=== PATIENT | female | born 1990 | race Caucasian/White ===

== ENCOUNTER 2016-06-22 02:32 | Emergency (ER) | payer MEDICAID ==
[~2016-06-22] VITALS: Ht 160 cm; Wt 63.5 kg
[~2016-06-22 02:32] MED LIST: ACET500C5 PO; CEPH-443 PO; CIPR500T4 PO; DICY10CA60 PO; HYDR-3498 PO; HYDR-906 PO; MAG-19 PO; METR500T PO; NITR-58 PO; OMEP20CA16 PO; ONDA4TAB35 PO; ONDA4TAB8 PO; OXYC-281 PO
[2016-06-22 02:35] VITALS: Ht 160 cm; Wt 63.5 kg
[2016-06-22] MEDS ORDERED: morphine 4 MG/ML VIAL IV STA (02:53)
[2016-06-22] MEDS ORDERED: ONDANSETRON 4 MG INJ IV STA ×2 (02:53→04:27)
[2016-06-22] MEDS ORDERED: SOD CHLORIDE 0.9% 1,000 ML IV STA (02:53)
[2016-06-22 03:52] LABS: ADD UMIC NO; URINE BILIRUBIN (Dip) NEGATIVE (NEGATIVE); URINE BLOOD (Dip) NEGATIVE (NEGATIVE); URINE COLOR LT. YELLOW (YELLOW); URINE GLUCOSE (Dip) NEGATIVE (NEGATIVE); URINE KETONES (Dip) NEGATIVE (NEGATIVE); URINE LEUKOCYTE ESTERASE (Dip) NEGATIVE (NEGATIVE); URINE NITRITE (Dip) NEGATIVE (NEGATIVE); URINE TOTAL PROTEIN (Dip) NEGATIVE (NEGATIVE); URINE UROBILINOGEN (Dip) 0.2 E.U./dL (0.1-1.0)
[2016-06-22 03:56] LABS: BASOPHILS % 0.3 % (0.0-2.0); EOSINOPHILS # 0.2 10^3/ul (0.0-0.5); EOSINOPHILS % 3.6 % (0.0-7.0); HEMATOCRIT 40.5 % (37.0-47.0); HEMOGLOBIN 13.4 g/dl (12.0-16.0); LYMPHOCYTES # 2.3 10^3/ul (0.8-2.9); LYMPHOCYTES % 36.2 % (15.0-51.0); MEAN CORPUSCULAR HEMOGLOBIN 27.2 pg (29.0-33.0); MEAN CORPUSCULAR HGB CONC 33.2 g/dl (32.0-37.0); MEAN CORPUSCULAR VOLUME 82.1 fl (82.0-101.0); MEAN PLATELET VOLUME 8.6 fl (7.4-10.4); MONOCYTE # 0.5 10^3/ul (0.3-0.9); MONOCYTES % 7.8 % (0.0-11.0); NEUTROPHIL # 3.3 10^3/ul (1.6-7.5); NEUTROPHILS % 52.1 % (39.0-77.0); PLATELET COUNT 239 10^3/UL (140-440); RED BLOOD COUNT 4.93 10^6/ul (4.20-5.40); RED CELL DISTRIBUTION WIDTH 18.9 % (11.5-14.5); UNCORRECTED WBC 6.3 10^3/ul (4.8-10.8); WHITE BLOOD COUNT 6.3 10^3/ul (4.8-10.8)
[2016-06-22 03:59] LABS: CONDITION 1; LH ANALYZER COMMENTS 1
[2016-06-22 04:00] LABS: POTASSIUM 3.8 mmol/L (3.5-5.1)
[2016-06-22 04:02] LABS: ALBUMIN/GLOBULIN RATIO 1.11; BILIRUBIN,INDIRECT 0.2 mg/dl (0-1.1); BILIRUBIN,TOTAL 0.2 mg/dl (0.2-1.3); CREATININE 1.12 mg/dl (0.44-1.00); TOTAL PROTEIN 7.6 g/dl (6.1-8.1)
[2016-06-22 04:03] LABS: CALCIUM 9.1 mg/dl (8.4-10.2)
[2016-06-22] MEDS ORDERED: HYDROmorphONE 1 MG/ML SYG IV STA (04:13)
--- NOTE | 2016-06-22 05:09 | ERD ---
ER Documentation Chief Complaint Date/Time DATE: 06/22/16 TIME: 05:08 Chief Complaint hx of gallstones, RUQ abdominal pain/N/V/D since 0000 HPI This is a 25-year-old female history of gallstones. Patient has right upper quadrant pain nausea vomiting diarrhea since 12 midnight. Pain is mild to moderate in intensity. 2 episodes of diarrhea with watery. No blood in the vomit. No blood in the stool. No other current complaints. ROS All systems reviewed and are negative except as per history of present illness. Medications Home Meds Active Scripts Ondansetron Hcl* (Zofran*) 4 Mg Tablet, 4 MG PO Q6H for NAUSEA AND/OR VOMITING, #30 TAB Prov:MARIETTA WARD 04/30/16 Hydrocodone/Acetaminophen ([place] 5-325 Tablet) 1 Each Tablet, 1 TAB PO Q6H Y for PAIN, #20 TAB Prov:MARIETTA WARD 04/30/16 Metronidazole* (Flagyl*) 500 Mg Tablet, 500 MG PO TID for 7 Days, TAB Prov:MARIETTA WARD 04/30/16 Ciprofloxacin Hcl* (Ciprofloxacin Hcl*) 500 Mg Tablet, 500 MG PO BID for 7 Days , TAB Prov:MARIETTA WARD 04/30/16 Cephalexin* (Keflex*) 500 Mg Capsule, 500 MG PO QID for 5 Days, CAP Prov:DIALLO EGAN NP 08/14/15 Omeprazole* (Omeprazole*) 20 Mg Capsule.dr, 20 MG PO DAILY, #30 CAP Prov:MAGO LIGHT NP 07/03/15 Ondansetron Hcl* (Zofran* ODT) 4 mg -ODT Tab.disper, 4 MG PO Q8 Y for NAUSEA AND OR VOMITING, #30 TAB Prov:MAGO LIGHT NP 07/03/15 Oxycodone Hcl-Acetaminophen* (Percocet*) 5-325 Mg Tablet, 1 TAB PO Q4H Y for jabari, #30 TAB Prov:MAGO LIGHT RN [employer]IAL SERVICES 07/03/15 Magaldrate/Simethicone* (Mylanta*) 355 Ml Susp, 30 ML PO QID Y for GASTROINTESTINAL UPSET, #1 BOTTLE Prov:MAGO LIGHT RN [employer]IAL SERVICES 07/03/15 Dicyclomine Hcl* (Bentyl*) 10 Mg Capsule, 10 MG PO QID for abdominal cramps, # 30 CAP Prov:MAGO LIGHT RN [employer]IAL SERVICES 07/03/15 Hydrocodone Bit-Acetaminophen* ([place]*) 5-325 Mg Tab, 1 TAB PO Q6 Y for PAIN, # 15 TAB Prov:CARLOS BAILEY RN SOCIAL SERVICES 06/30/15 Acetaminophen* (Tylophen*) 500 Mg Capsule, 1 CAP PO Q6H Y for PAIN AND OR ELEVATED TEMP, #20 CAP Prov:CARLOS BAILEY RN SOCIAL SERVICES 06/30/15 Nitrofurantoin Monohyd Macrocr* (Macrobid*) 100 Mg Capsr, 100 MG PO BID for 7 Days, CAP Prov:CARLOS BAILEY RN SOCIAL SERVICES 06/30/15 Allergies Allergies: Coded Allergies: No Known Allergy (Unverified , 07/03/15) PMhx/Soc History of Surgery: Yes (hernia repair and chest surgery in childhood.) Anesthesia Reaction: No Hx Neurological Disorder: No Hx Respiratory Disorders: No Hx Cardiac Disorders: No Hx Psychiatric Problems: No Hx Miscellaneous Medical Probl: Yes (gallstones) Hx Alcohol Use: Yes (social) Hx Substance Use: No Hx Tobacco Use: No Smoking Status: Unknown if ever smoked Physical Exam Vitals Vital Signs Date Time Temp Pulse Resp B/P Pulse Ox O2 Delivery O2 Flow Rate FiO2 06/22/16 02:35 97.5 66 20 116/81 99 Physical Exam Const: [] Head: Atraumatic Eyes: Normal Conjunctiva ENT: Normal External Ears, Nose and Mouth. Neck: Full range of motion..~ No meningismus. Resp: Clear to auscultation bilaterally Cardio: Regular rate and rhythm, no murmurs Abd: Soft, non tender, non distended. Normal bowel sounds Skin: No petechiae or rashes Back: No midline or flank tenderness Ext: No cyanosis, or edema Neur: Awake and alert Psych: Normal Mood and Affect Result Diagram: 06/22/16 0305 06/22/16 0305 Results 24 hrs Laboratory Tests Test 06/22/16 03:05 06/22/16 03:08 Alanine Aminotransferase (ALT/SGPT) 27IU/L Albumin 4.0g/dl Albumin/Globulin Ratio 1.11 Alkaline Phosphatase 75IU/L Anion Gap 15 Aspartate Amino Transf (AST/SGOT) 20IU/L Basophils # 0.010^3/ul Basophils % 0.3% Blood Morphology Comment Blood Urea Nitrogen 19mg/dl Calcium Level 9.1mg/dl Carbon Dioxide Level 31mmol/L Chloride Level 99mmol/L Creatinine 1.12mg/dl Direct Bilirubin 0.00mg/dl Eosinophils # 0.210^3/ul Eosinophils % 3.6% Globulin 3.60g/dl Glucose Level 91mg/dl Hematocrit 40.5% Hemoglobin 13.4g/dl Indirect Bilirubin 0.2mg/dl Lipase 75U/L Lymphocytes # 2.310^3/ul Lymphocytes % 36.2% Mean Corpuscular Hemoglobin 27.2pg Mean Corpuscular Hemoglobin Concent 33.2g/dl Mean Corpuscular Volume 82.1fl Mean Platelet Volume 8.6fl Monocytes # 0.510^3/ul Monocytes % 7.8% Neutrophils # 3.310^3/ul Neutrophils % 52.1% Nucleated Red Blood Cells # 0.010^3/ul Nucleated Red Blood Cells % 0.0/100WBC Platelet Count 93095^3/UL Potassium Level 3.8mmol/L Red Blood Count 4.9310^6/ul Red Cell Distribution Width 18.9% Sodium Level 141mmol/L Total Bilirubin 0.2mg/dl Total Protein 7.6g/dl White Blood Count 6.310^3/ul Urine Bilirubin NEGATIVE Urine Clarity CLEAR Urine Color LT. YELLOW Urine Glucose NEGATIVE% Urine Hemoglobin NEGATIVE Urine Ketones NEGATIVE Urine Leukocyte Esterase NEGATIVE Urine Nitrite NEGATIVE Urine Specific [place] 1.010 Urine Total Protein NEGATIVE Urine Urobilinogen 0.2 E.U./dL Urine pH 6.5 Current Medications Medications (Trade) Dose Ordered Sig/Chen Route PRN Reason Start Time Stop Time Status Last Admin Dose Admin Sodium Chloride (NS) 1,000 ml @ 1,000 mls/hr Q1H STAT IV 06/22/16 02:53 06/22/16 03:52 DC 06/22/16 03:07 Morphine Sulfate (morphine) 4 mg ONCE STAT IV 06/22/16 02:53 06/22/16 02:54 DC 06/22/16 03:07 Ondansetron HCl (Zofran Inj) 4 mg ONCE STAT IV 06/22/16 02:53 06/22/16 02:54 DC 06/22/16 03:06 Hydromorphone HCl (Dilaudid) 1 mg ONCE STAT IV 06/22/16 04:13 06/22/16 04:16 DC 06/22/16 04:30 Ondansetron HCl (Zofran Inj) 4 mg ONCE STAT IV 06/22/16 04:27 06/22/16 04:28 DC 06/22/16 04:31 Procedures/MDM CBC: no e/o of systemic infection or severe anemia CMP: no e/o severe acidosis, alkalosis, renal failure, diabetic ketoacidosis, liver disease Lipase: no e/o pancreatitis PT/INR: normal coagulation Urine: no e/o acute infection or hematuria Medical decision-makin-year-old female with history of gallstones with reactivation biliary colic. At this point is clinically stable. Feeling much better. Will be discharged home. Follow-up in 8 hours for serial abdominal exams Departure Diagnosis: Primary Impression: Biliary colic Condition: Stable TERESA BENAVIDES Jun 22, 2016 05:09
[2016-06-22] MEDS ORDERED: ONDA4TAB14 PO (05:17)
[2016-06-22] MEDS ORDERED: HYDR-902 PO (05:17)
[2016-06-22 05:25] VITALS: BP 113/77; PULSE 71; RESP 18
== END 2016-06-22 05:25 | disposition home or self-care (01) ==
LOC: E/R 02:32
DX: K80.50 Calculus of bile duct without cholangitis or cholecystitis without obstruction (principal); R11.2 Nausea with vomiting, unspecified
CPT/HCPCS: 36415; 80053; 81003; 83690; 85025; 96374; 96375; 96376; J1170; J2270; J2405; J7030; Z7502

== ENCOUNTER 2017-02-05 19:39 | Emergency (ER) | payer MEDICAID ==
[~2017-02-05] VITALS: Ht 160 cm; Wt 63.0 kg
[~2017-02-05 19:39] MED LIST changes: +HYDR-902 PO; +ONDA4TAB14 PO
[2017-02-05 19:50] VITALS: Ht 160 cm; Wt 63.0 kg
[2017-02-05] MEDS ORDERED: morphine 4 MG/ML VIAL IV STA (21:45)
[2017-02-05] MEDS ORDERED: ONDANSETRON 4 MG INJ IV STA ×2 (21:45→23:47)
[2017-02-05] MEDS ORDERED: SOD CHLORIDE 0.9% 1,000 ML IV STA (21:45)
[2017-02-05 22:32] LABS: BASOPHILS % 0.4 % (0.0-2.0); EOSINOPHILS # 0.1 10^3/ul (0.0-0.5); EOSINOPHILS % 2.3 % (0.0-7.0); HEMATOCRIT 43.4 % (37.0-47.0); HEMOGLOBIN 14.6 g/dl (12.0-16.0); LYMPHOCYTES # 2.1 10^3/ul (0.8-2.9); LYMPHOCYTES % 36.9 % (15.0-51.0); MEAN CORPUSCULAR HEMOGLOBIN 30.4 pg (29.0-33.0); MEAN CORPUSCULAR HGB CONC 33.6 g/dl (32.0-37.0); MEAN CORPUSCULAR VOLUME 90.2 fl (82.0-101.0); MEAN PLATELET VOLUME 9.5 fl (7.4-10.4); MONOCYTE # 0.5 10^3/ul (0.3-0.9); MONOCYTES % 8.7 % (0.0-11.0); NEUTROPHILS % 51.3 % (39.0-77.0); PLATELET COUNT 264 10^3/UL (140-415); RED BLOOD COUNT 4.81 10^6/ul (4.20-5.40); RED CELL DISTRIBUTION WIDTH 13.1 % (11.5-14.5); WHITE BLOOD COUNT 5.6 10^3/ul (4.8-10.8)
[2017-02-05 22:38] LABS: ADD UMIC YES; UR ASCORBIC ACID NEGATIVE (NEGATIVE); UR BACTERIA FEW /HPF (NONE SEEN); UR BILIRUBIN (Dip) NEGATIVE (NEGATIVE); UR BLOOD (Dip) 3+ mg/dL (NEGATIVE); UR CLARITY CLEAR (CLEAR); UR COLOR YELLOW (YELLOW); UR GLUCOSE (Dip) NEGATIVE (NEGATIVE); UR KETONES (Dip) NEGATIVE (NEGATIVE); UR LEUKOCYTE ESTERASE (Dip) NEGATIVE Leu/ul (NEGATIVE); UR NITRITE (Dip) NEGATIVE (NEGATIVE); UR RBC 1 /HPF (0-5); UR SPECIFIC GRAVITY (Dip) 1.009 (1.003-1.030); UR SQUAMOUS EPITHELIAL CELL FEW /HPF (FEW); UR TOTAL PROTEIN (Dip) NEGATIVE (NEGATIVE); UR UROBILINOGEN (Dip) NEGATIVE (NEGATIVE)
[2017-02-05 22:49] LABS: ALBUMIN 4.1 g/dl (3.3-4.9); ALBUMIN/GLOBULIN RATIO 1.2; BILIRUBIN,INDIRECT 0.4 mg/dl (0-1.1); BILIRUBIN,TOTAL 0.4 mg/dl (0.2-1.3); CALCIUM 9.6 mg/dl (8.4-10.2); CREATININE 1.26 mg/dl (0.44-1.00); POTASSIUM 3.4 mmol/L (3.5-5.1); TOTAL PROTEIN 7.5 g/dl (6.1-8.1)
--- NOTE | 2017-02-05 23:26 | RADRPT ---
PROCEDURE: Right upper quadrant abdominal ultrasound. CLINICAL INDICATION: Abdominal pain TECHNIQUE: Kern scale and color doppler ultrasound images of the right upper quadrant of the abdom en. COMPARISON: 04/30/2016 abdominal ultrasound, 07/03/2015 CT abdomen pelvis FINDINGS: Pancreas: Not visualized by the rotary envelope machine operator. Liver: Morphology:Normal in size. Contour:Normal, no evidence of nodularity. Echogenicity: Normal. Focal lesions:None. Main portal vein: Patent with hepatopetal flow. Biliary System: Gallbladder wall: Normal thickness. Gallstones: None. Intrahepatic bile ducts: Normal caliber. Common bile duct diameter (mm): 4.1 Kidneys: Right length (cm) : 8.9 Right cortical thickness: Normal. Echogenicity: Normal. Hydronephrosis: Mild right-sided hydronephrosis. Renal calculi: No definite sonographic evidence of renal calculi. Focal lesions: None. Free fluid/ascites: None. Abdominal aorta: Not visualized by the rotary envelope machine operator. Other findings: None. IMPRESSION: Cholelithiasis without evidence of abnormal gallbladder wall thickening to suggest cholecystitis. Normal caliber of the intrahepatic and extrahepatic biliary system. Mild right-sided hydronephrosis without sonographic evidence of renal calculi. RPTAT: AADD .Aldo Gaming MD, MD Date Time Electronically viewed and signed by .Aldo Gaming MD, on 02/05/2017 23:25 .B/
[2017-02-05] MEDS ORDERED: HYDROmorphONE 1 MG/ML SYG IV STA (23:47)
[2017-02-06] MEDS ORDERED: DICYCLOMINE 10 MG CAP PO ONE
[2017-02-06] MEDS ORDERED: HYDROmorphONE 1 MG/ML SYG IV STA (00:42)
[2017-02-06] MEDS ORDERED: METOCLOPRAMIDE 10 MG INJ IV ONE (01:00)
[2017-02-06] MEDS ORDERED: HYDR-906 PO (01:14)
[2017-02-06] MEDS ORDERED: ONDA4TAB14 PO (01:14)
[2017-02-06 01:42] VITALS: BP 121/82; PULSE 66; RESP 20; TEMP 98.6
--- NOTE | 2017-02-06 03:44 | ERD ---
ER Documentation Chief Complaint Date/Time DATE: 02/06/17 TIME: 03:43 Chief Complaint AP HX of gall stones. HPI 26-year-old female patient past medical history of nephrolithiasis presents to the ED complaining of right upper quadrant pain that started earlier today. Reports that she has had 5 episodes of nonbilious nonbloody vomiting. Denies any fever, chills, diarrhea, constipation, chest pain, shortness of breath. Denies any vaginal bleeding, vaginal discharge, dysuria, urgency, frequency, hematuria. ROS All systems reviewed and are negative except as per history of present illness. Medications Home Meds Active Scripts Ondansetron (Ondansetron Odt) 4 Mg Tab.rapdis, 4 MG PO Q6H Y for NAUSEA AND/OR VOMITING, #10 TAB Prov:LORI WANG PA-C 02/06/17 Hydrocodone/Acetaminophen ([place] 5-325 Tablet) 1 Each Tablet, 1 TAB PO Q6H Y for PAIN, #14 TAB Prov:LORI WANG PA-C 02/06/17 Ondansetron (Ondansetron Odt) 4 Mg Tab.rapdis, 4 MG PO Q6H Y for NAUSEA AND/OR VOMITING, #10 TAB Prov:MOGHADAM,TERESA S. 06/22/16 Hydrocodone/Acetaminophen ([place] 10-325 Tablet) 1 Each Tablet, 1 TAB PO Q6H Y for PAIN, #20 TAB Prov:MOGHADAM,TERESA S. 06/22/16 Ondansetron Hcl* (Zofran*) 4 Mg Tablet, 4 MG PO Q6H for NAUSEA AND/OR VOMITING, #30 TAB Prov:EDMARIETTA C 04/30/16 Hydrocodone/Acetaminophen ([place] 5-325 Tablet) 1 Each Tablet, 1 TAB PO Q6H Y for PAIN, #20 TAB Prov:EDMARIETTA C 04/30/16 Metronidazole* (Flagyl*) 500 Mg Tablet, 500 MG PO TID for 7 Days, TAB Prov:ED,MARIETTA C 04/30/16 Ciprofloxacin Hcl* (Ciprofloxacin Hcl*) 500 Mg Tablet, 500 MG PO BID for 7 Days , TAB Prov:ED,MARIETTA C 04/30/16 Cephalexin* (Keflex*) 500 Mg Capsule, 500 MG PO QID for 5 Days, CAP Prov:DIALLO EGAN NP 08/14/15 Omeprazole* (Omeprazole*) 20 Mg Capsule.dr, 20 MG PO DAILY, #30 CAP Prov:MAGO LIGHT [employer]ING [employer] MAINTAINER 07/03/15 Ondansetron Hcl* (Zofran* ODT) 4 mg -ODT Tab.disper, 4 MG PO Q8 Y for NAUSEA AND OR VOMITING, #30 TAB Prov:MAGO LIGHT [employer]ING [employer] MAINTAINER 07/03/15 Oxycodone Hcl-Acetaminophen* (Percocet*) 5-325 Mg Tablet, 1 TAB PO Q4H Y for jabari, #30 TAB Prov:MAGO LIGHT [employer] MAINTAINER 07/03/15 Magaldrate/Simethicone* (Mylanta*) 355 Ml Susp, 30 ML PO QID Y for GASTROINTESTINAL UPSET, #1 BOTTLE Prov:MAGO LIGHT NP 07/03/15 Dicyclomine Hcl* (Bentyl*) 10 Mg Capsule, 10 MG PO QID for abdominal cramps, # 30 CAP Prov:MAGO LIGHT [employer]ING [employer] MAINTAINER 07/03/15 Hydrocodone Bit-Acetaminophen* ([place]*) 5-325 Mg Tab, 1 TAB PO Q6 Y for PAIN, # 15 TAB Prov:CARLOS BAILEY [employer] MAINTAINER 06/30/15 Acetaminophen* (Tylophen*) 500 Mg Capsule, 1 CAP PO Q6H Y for PAIN AND OR ELEVATED TEMP, #20 CAP Prov:CARLOS BAILEY [employer] MAINTAINER 06/30/15 Nitrofurantoin Monohyd Macrocr* (Macrobid*) 100 Mg Capsr, 100 MG PO BID for 7 Days, CAP Prov:CARLOS BAILEY CURING PR[employer] MAINTAINER 06/30/15 Allergies Allergies: Coded Allergies: No Known Allergy (Unverified , 07/03/15) PMhx/Soc History of Surgery: Yes (hernia repair and chest surgery in childhood.) Anesthesia Reaction: No Hx Neurological Disorder: No Hx Respiratory Disorders: No Hx Cardiac Disorders: No Hx Psychiatric Problems: No Hx Miscellaneous Medical Probl: Yes (gallstones) Hx Alcohol Use: Yes (social) Hx Substance Use: No Hx Tobacco Use: No Smoking Status: Never smoker Physical Exam Vitals Vital Signs Date Time Temp Pulse Resp B/P Pulse Ox O2 Delivery O2 Flow Rate FiO2 02/06/17 01:42 98.6 66 20 121/82 100 02/05/17 19:50 99.0 75 20 118/82 100 Physical Exam Const: [id number], well-nourished. In no acute distress. Head: Atraumatic, normocephalic Eyes: Normal Conjunctiva without injection. No purulent discharge. ENT: Normal external ear, nose. Moist oropharynx without tonsillar exudates. Non -erythematous pharynx. Uvula midline. No drooling. No trismus. Neck: No cervical midline tenderness. Full range of motion. No meningismus. No cervical lymphadenopathy. No JVD. Resp: Clear to auscultation bilaterally. No wheezing, rhonchi, rales, or crackles. No accessory muscle use. No retractions. Cardio: Regular rate and rhythm. No murmurs, rubs or gallops. Abd: Soft, right upper quadrant tenderness, non distended. Normal bowel sounds. No palpable masses. No rebound tenderness. No guarding. Negative McBurney' s point. Negative psoas sign. Negative obturator sign. Skin: No petechiae or rashes Back: No midline tenderness. No CVA tenderness. Ext: No cyanosis, or edema. Neur: Awake and alert. Normal gait. Normal coordination. Psych: Normal Mood and Affect Results 24 hrs Laboratory Tests Test 02/05/17 22:05 02/05/17 22:15 Urine Color YELLOW Urine Clarity CLEAR Urine pH 6.0 Urine Specific [place] 1.009 Urine Ketones NEGATIVEmg/dL Urine Nitrite NEGATIVEmg/dL Urine Bilirubin NEGATIVEmg/dL Urine Urobilinogen NEGATIVEmg/dL Urine Leukocyte Esterase NEGATIVELeu/ul Urine Microscopic RBC 1/HPF Urine Microscopic WBC 3/HPF Urine Squamous Epithelial Cells FEW/HPF Urine Bacteria FEW/HPF Urine Hemoglobin 3+mg/dL Urine Glucose NEGATIVEmg/dL Urine Total Protein NEGATIVEmg/dl White Blood Count 5.610^3/ul Red Blood Count 4.8110^6/ul Hemoglobin 14.6g/dl Hematocrit 43.4% Mean Corpuscular Volume 90.2fl Mean Corpuscular Hemoglobin 30.4pg Mean Corpuscular Hemoglobin Concent 33.6g/dl Red Cell Distribution Width 13.1% Platelet Count 16822^3/UL Mean Platelet Volume 9.5fl Neutrophils % 51.3% Lymphocytes % 36.9% Monocytes % 8.7% Eosinophils % 2.3% Basophils % 0.4% Nucleated Red Blood Cells % 0.0/100WBC Neutrophils # (Manual) 2.910^3/ul Lymphocytes # 2.110^3/ul Monocytes # 0.510^3/ul Eosinophils # 0.110^3/ul Basophils # 0.010^3/ul Nucleated Red Blood Cells # 0.010^3/ul Sodium Level 138mmol/L Potassium Level 3.4mmol/L Chloride Level 100mmol/L Carbon Dioxide Level 30mmol/L Anion Gap 11 Blood Urea Nitrogen 16mg/dl Creatinine 1.26mg/dl Glucose Level 87mg/dl Calcium Level 9.6mg/dl Total Bilirubin 0.4mg/dl Direct Bilirubin 0.00mg/dl Indirect Bilirubin 0.4mg/dl Aspartate Amino Transf (AST/SGOT) 19IU/L Alanine Aminotransferase (ALT/SGPT) 27IU/L Alkaline Phosphatase 65IU/L Total Protein 7.5g/dl Albumin 4.1g/dl Globulin 3.40g/dl Albumin/Globulin Ratio 1.20 Lipase 76U/L Current Medications Medications (Trade) Dose Ordered Sig/Chen Route PRN Reason Start Time Stop Time Status Last Admin Dose Admin Sodium Chloride (NS) 1,000 ml @ 1,000 mls/hr Q1H STAT IV 02/05/17 21:45 02/05/17 22:44 DC 02/05/17 22:20 Morphine Sulfate (morphine) 4 mg ONCE STAT IV 02/05/17 21:45 02/05/17 21:48 DC 02/05/17 22:24 Ondansetron HCl (Zofran Inj) 4 mg ONCE STAT IV 02/05/17 21:45 02/05/17 21:48 DC 02/05/17 22:24 Ondansetron HCl (Zofran Inj) 4 mg ONCE STAT IV 02/05/17 23:47 02/05/17 23:48 DC 02/06/17 00:12 Dicyclomine HCl (Bentyl) 10 mg ONCE ONCE PO 02/06/17 00:00 02/06/17 00:01 DC 02/06/17 00:12 Hydromorphone HCl (Dilaudid) 0.5 mg ONCE STAT IV 02/05/17 23:47 02/05/17 23:48 DC 02/06/17 00:12 Metoclopramide HCl (Reglan) 10 mg ONCE ONCE IV 02/06/17 01:00 02/06/17 01:01 DC 02/06/17 00:54 Hydromorphone HCl (Dilaudid) 0.5 mg ONCE STAT IV 02/06/17 00:42 02/06/17 00:43 DC 02/06/17 00:54 Procedures/MDM 26-year-old female patient with no significant past medical history presents to the ED complaining of right upper quadrant abdominal pain. Patient is afebrile and nontoxic-appearing. Patient has normal vital signs. Patient was further worked up with CBC, CMP, lipase, UA, urine , gallbladder ultrasound. Patient's pain and symptoms have improved after treatment with 4 mg IV morphine , 1 mg IV Dilaudid, Bentyl, 8 mg IV Zofran, 10 mg IV Reglan. CBC: No leukocytosis. No e/o of systemic infection. No e/o anemia. CMP: No e/o severe acidosis, alkalosis, renal failure, diabetic ketoacidosis, liver disease Lipase within normal limits. Urine: No leukocyte esterase, no nitrites, no hematuria. Urine : Negative PROCEDURE: Right upper quadrant abdominal ultrasound. CLINICAL INDICATION: Abdominal pain TECHNIQUE: Kern scale and color doppler ultrasound images of the right upper quadrant of the abdomen. COMPARISON: 04/30/2016 abdominal ultrasound, 07/03/2015 CT abdomen pelvis FINDINGS: Pancreas: Not visualized by the shake maker. Liver: Morphology:Normal in size. Contour:Normal, no evidence of nodularity. Echogenicity: Normal. Focal lesions:None. Main portal vein: Patent with hepatopetal flow. Biliary System: Gallbladder wall: Normal thickness. Gallstones: None. Intrahepatic bile ducts: Normal caliber. Common bile duct diameter (mm): 4.1 Kidneys: Right length (cm) : 8.9 Right cortical thickness: Normal. Echogenicity: Normal. Hydronephrosis: Mild right-sided hydronephrosis. Renal calculi: No definite sonographic evidence of renal calculi. Focal lesions: None. Free fluid/ascites: None. Abdominal aorta: Not visualized by the shake maker. Other findings: None. IMPRESSION: Cholelithiasis without evidence of abnormal gallbladder wall thickening to suggest cholecystitis. Normal caliber of the intrahepatic and extrahepatic biliary system. Mild right-sided hydronephrosis without sonographic evidence of renal calculi. Patient has cholelithiasis without evidence of cholecystitis. Low suspicion for gastritis, GERD, peptic ulcer disease, cholecystitis, choledocholithiasis, cholangitis, pancreatitis, appendicitis, bowel obstruction, ileus, volvulus, nephrolithiasis, pyelonephritis, hepatitis, perforated viscus, diverticulitis, abdominal hernia, acute abdomen, mesenteric ischemia or other emergent conditions. She has been here 5 times previously for similar symptoms. This case discussed my supervising physician, Dr. Ledezma who agreed that patient should be managed on outpatient basis with a general surgeon. Discharge medications: Meenu Atkinson Follow up with primary care physician in 1-2 days for referral to a general surgeon. Instructed patient to return to the ED sooner for any worsening symptoms. Patient's questions were answered. Patient understood and agreed with discharge plan. Patient discharged stable. Departure Diagnosis: Primary Impression: Gallstone Cholecystitis presence: without cholecystitis Biliary obstruction: without biliary obstruction Qualified Code: K80.20 - Calculus of gallbladder without cholecystitis without obstruction Condition: Stable Patient Instructions: Biliary Colic With Gallstone (Confirmed) Referrals: [facility] YOU HAVE RECEIVED A MEDICAL SCREENING EXAM AND THE RESULTS INDICATE THAT YOU DO NOT HAVE A CONDITION THAT REQUIRES URGENT TREATMENT IN THE EMERGENCY DEPARTMENT. FURTHER EVALUATION AND TREATMENT OF YOUR CONDITION CAN WAIT UNTIL YOU ARE SEEN IN YOUR DOCTORS OFFICE WITHIN THE NEXT 1-2 DAYS. IT IS YOUR RESPONSIBILITY TO MAKE AN APPOINTMENT FOR FOLOW-UP CARE. IF YOU HAVE A PRIMARY DOCTOR --you should call your primary doctor and schedule an appointment IF YOU DO NOT HAVE A PRIMARY DOCTOR YOU CAN CALL OUR PHYSICIAN REFERRAL HOTLINE AT IF YOU CAN NOT AFFORD TO SEE A PHYSICIAN YOU CAN CHOSE FROM THE FOLLOWING [facility] CLINICS [facility] [address] [facility] [address] [facility] [address] [facility] [address] [facility] [address] [facility]. [facility] [address] [facility]. [facility] YOU HAVE RECEIVED A MEDICAL SCREENING EXAM AND THE RESULTS INDICATE THAT YOU DO NOT HAVE A CONDITION THAT REQUIRES URGENT TREATMENT IN THE EMERGENCY DEPARTMENT. FURTHER EVALUATION AND TREATMENT OF YOUR CONDITION CAN WAIT UNTIL YOU ARE SEEN IN YOUR DOCTORS OFFICE WITHIN THE NEXT 1-2 DAYS. IT IS YOUR RESPONSIBILITY TO MAKE AN APPOINTMENT FOR FOLOW-UP CARE. IF YOU HAVE A PRIMARY DOCTOR --you should call your primary doctor and schedule and appointment IF YOU DO NOT HAVE A PRIMARY DOCTOR YOU CAN CALL OUR PHYSICIAN REFERRAL HOTLINE AT . IF YOU CAN NOT AFFORD TO SEE A PHYSICIAN YOU CAN CHOSE FROM THE FOLLOWING [facility] INSTITUTIONS: [facility] [id number] [place] [id number] [facility] [address] [place], [place] [id number] [place] [address] [address] [place] [address] [facility] URGENT CARE/SPECIALTIES Additional Instructions: Call your primary care doctor TOMORROW for an appointment during the next 2-3 days for a referral to see a general surgeon. See the doctor sooner or return here if your condition worsens before your appointment time. LORI WANG PA-C Feb 06, 2017 03:44 LORI WANG PA-C Feb 06, 2017 03:44
== END 2017-02-06 01:43 | disposition home or self-care (01) ==
LOC: FTE 19:39
DX: K80.20 Calculus of gallbladder without cholecystitis without obstruction (principal); R11.10 Vomiting, unspecified
CPT/HCPCS: 36415; 76705; 80053; 81001; 83690; 85025; 96374; 96375; 96376; J1170; J2270; J2405; J2765; J7030; Z7502; Z7610